=== PATIENT | male | born 1990 | race Caucasian/White ===

== ENCOUNTER 2024-07-19 20:15 | Emergency (ER) | payer OTHER, SELFPAY ==
[2024-07-19 20:45] VITALS: BP 158/85; PULSE 92; RESP 14; TEMP 36.6; O2SAT 100
[2024-07-20 06:54] VITALS: PULSE 84; RESP 20
[2024-07-20] MEDS: ALBUTEROL SULFATE NEB 2.5 MG/3 ML INH (06:54)
[2024-07-20 07:00] VITALS: PULSE 82; RESP 20
--- NOTE | 2024-07-20 07:03 | ED.GENADULT ---
HPI - General Adult General Chief complaint: Environmental Exposure Stated complaint: ammonia chloride exposure Time Seen by Provider: 07/20/24 06:55 Source: patient Mode of arrival: ambulatory Limitations: no limitations History of Present Illness HPI narrative: Patient presents complaint of pneumonia exposure. States he has had a history of allergic reactions previously that caused rash and swelling and when he had this exposure today he had swollen eyes scratchy throat throughout the day. He has a history asthma and felt short of breath initially in triage continues to feel the same my exam. He is requesting a refill of his albuterol inhaler prescription. At baseline asthma is well controlled by using albuterol p.r.n., typically he sees [facility] with only occasional usage. He has required BiPAP for intubation for his asthma. Related Data Allergies Allergy/AdvReac Type Severity Reaction Status Date / Time No Known Allergies Allergy Verified 07/19/24 20:49 [facility] Past Medical History Medical History Asthma Social History Social History Additional living arrangements comments: chestnut Exam Narrative: GENERAL: Well-appearing, well-nourished, and in no acute distress. HEAD: Normocephalic, atraumatic. EYES: Non injected, non icteric ENT: Nares clear, no rhinorrhea or epistaxis. NECK: Supple. CHEST: Speaking in full sentences. No respiratory distress. lungs clear to auscultation bilaterally without appreciable wheezes. No accessory muscle usage. Nonlabored. No stridor HEART: Regular rate and rhythm. . ABDOMEN: Soft, nondistended. EXTREMITIES: Normal range of motion. No lower extremity edema. SKIN: Warm, dry, no rash. NEURO: No focal deficits. Alert and oriented x3. PSYCH: Normal mood and affect. Course Vital Signs Vital signs: Vital Signs Temperature 97.9 F 07/19/24 20:45 Pulse Rate 92 07/19/24 20:45 Respiratory Rate 14 07/19/24 20:45 Blood Pressure 158/85 H 07/19/24 20:45 Pulse Oximetry 100 07/19/24 20:45 Oxygen Delivery Room Air 07/19/24 20:45 Temperature 97.9 F 07/19/24 20:45 Pulse Rate 88 07/20/24 07:47 Respiratory Rate 16 07/20/24 07:47 Blood Pressure 136/84 07/20/24 07:47 Pulse Oximetry 99 07/20/24 07:47 Oxygen Delivery Room Air 07/19/24 20:45 Medical Decision Making MDM Narrative Medical decision making narrative: patient presents with report of exposure to ammonia causing swollen eyes and scratchy throat as well as subjective shortness of breath with an underlying history of asthma. He is also requesting albuterol inhaler medication refill prescription. Asthma well controlled at baseline. In the emergency department is afebrile with vital signs notable for hypertension. he is very well appearing, not in distress. No appreciable wheezes exam. at this time I do not believe he is having exacerbation so will defer giving magnesium or steroids. Do not believe there is a role for obtaining imaging or other labs including no need for a viral panel at this time. Albuterol nebulized treatment provided while in the emergency department patient discharged with a prescription for albuterol inhaler. There is EMR down time and printing issues that contributed to his delay/length of stay in the emergency department. Patient provided a handwritten Rx for albuterol inhaler. discharged in stable condition. Someone from [place] to come provide transportation back. Differential Diagnosis Differential Diagnosis: Medication refill, environmental/ chemical exposure, pneumonitis, asthma exacerbation Vital Signs Vital Signs: Vital Signs Temperature 97.9 F 07/19/24 20:45 Pulse Rate 92 07/19/24 20:45 Respiratory Rate 14 07/19/24 20:45 Blood Pressure 158/85 H 07/19/24 20:45 Pulse Oximetry 100 07/19/24 20:45 Oxygen Delivery Room Air 07/19/24 20:45 Temperature 97.9 F 07/19/24 20:45 Pulse Rate 88 07/20/24 07:47 Respiratory Rate 16 07/20/24 07:47 Blood Pressure 136/84 07/20/24 07:47 Pulse Oximetry 99 07/20/24 07:47 Oxygen Delivery Room Air 07/19/24 20:45 Discharge Plan Discharge Clinical Impression: Environmental exposure, Encounter for medication refill Patient Disposition: Home, Self-Care Condition: Stable Instructions: Antibiotic Form, Asthma (DC), How Your Lungs Work (ED) Additional Instructions: A refill for your albuterol inhaler has been provided. Follow-up with your primary care physician. If you do not have unable to doctors listed below. Return to the emergency department with any new or worsening symptoms. Follow up Dr Mayo Cortes; [address] [address] ?[phone]:[phone] Patient Language: Kinyarwanda Prescriptions: New albuterol sulfate [Ventolin HFA] 90 mcg/actuation HFA aerosol inhaler 1 inh inhalation QID PRN (Reason: shortness of breath or wheezing) Qty: 6.7 0RF Follow-up/Referrals: PHYSICIAN NOT ON STAFF,NONSTAFF [Non-Staff] - Stand Alone Forms: Work/School Release IP Time of Disposition: 07:36
[2024-07-20 07:47] VITALS: BP 136/84; PULSE 88; RESP 16; O2SAT 99
== END 2024-07-20 08:04 | disposition home or self-care (01) ==
LOC: ANHED 07-20 07:51
PROVIDERS: Emergency Provider Student in an Organized Health Care Education/Training Program
DX: T59.891A Toxic effect of other specified gases, fumes and vapors, accidental (unintentional), initial encounter (principal); H57.89 Other specified disorders of eye and adnexa; R07.0 Pain in throat; J45.909 Unspecified asthma, uncomplicated; Z76.0 Encounter for issue of repeat prescription
CPT/HCPCS: 94640; 99281; 99283